=== PATIENT | male | born 1935 | race Asian ===

== ENCOUNTER 2017-09-30 11:44 | Day surgery (SDC) | payer OTHER ==
[2017-09-30 12:44] VITALS: BMI 23.4
[2017-09-30] MEDS ORDERED: METOCLOPRAMIDE HCL INJECTION 10 MG/2 ML VIAL ONE (13:41)
[2017-09-30 14:07] VITALS: TEMP 97.5
--- NOTE | 2017-09-30 14:50 | EKG ---
Test Reason : Blood Pressure : / mmHG Vent. Rate : 049 BPM Atrial Rate : 049 BPM P-R Int : 224 ms QRS Dur : 096 ms QT Int : 494 ms P-R-T Axes : 041 -14 042 degrees QTc Int : 446 ms SINUS BRADYCARDIA WITH 1ST DEGREE A-V BLOCK WITH PREMATURE ATRIAL COMPLEXES NONSPECIFIC ST ABNORMALITY ABNORMAL ECG NO PREVIOUS ECGS AVAILABLE Confirmed by MD Jania, Jhona ([id number]) on 09/30/2017 2:50:24 PM Referred By: BERNIE WALKER Confirmed By:Jhoan Dykes MD
[2017-09-30 15:20] VITALS: BP 110/60; PULSE 57
== END 2017-09-30 15:20 | disposition home or self-care (01) ==
LOC: JASU-ENDO 11:44
PROVIDERS: ATTEND Internal Medicine Cardiovascular Disease
PROC: 5A2204Z Restoration of Cardiac Rhythm, Single (ICD-10-PCS; principal; 2017-09-30 13:00)
DX: I48.91 Unspecified atrial fibrillation (principal)
CPT/HCPCS: 92960; 93005; 93010